=== PATIENT | female | born 1970 | race Caucasian/White ===

== ENCOUNTER 2020-11-28 12:28 | Emergency (ER) | payer BC, MEDICAID, SELFPAY ==
[~2020-11-28] VITALS: Ht 160 cm; Wt 65.8 kg
[2020-11-28 12:50] VITALS: BP 145/86
--- NOTE | 2020-11-28 12:53 | NUR ---
PT LEFT IN COVID TENT FOR MSE.
--- NOTE | 2020-11-28 15:19 | NUR ---
C/O COUGH, SOB, HEADACHE, CHILLS X 20 DAYS. TESTED POSITIVE FOR COVID 2 AYS AGO HX DENIES
--- NOTE | 2020-11-28 15:20 | NUR ---
Patient discharged with v/s stable. Written and verbal after care instructions given and explained. Patient alert, oriented and verbalized understanding of instructions. Ambulatory with steady gait. All questions addressed prior to discharge. ID band removed. Patient advised to follow up with PMD. Rx of AZITHROMYCIN, NAPROSYN, GUAIATUSSIN given. Patient educated on indication of medication including possible reaction and side effects. Opportunity to ask questions provided and answered.
[2020-11-28 15:21] VITALS: BP 145/86
== END 2020-11-28 15:20 | disposition home or self-care (01) ==
LOC: MED 12:28
DX: U07.1 COVID-19 (principal); J12.89 Other viral pneumonia
CPT/HCPCS: 71045; 99283

== ENCOUNTER 2020-12-02 10:40 | Emergency (ER) | payer MEDICAID ==
[~2020-12-02] VITALS: Ht 162.6 cm; Wt 63.5 kg
[2020-12-02 10:49] VITALS: BP 149/95
--- NOTE | 2020-12-02 11:00 | NUR ---
PATIENT SEEN AND EVALUATED BY ERMD IN TENT
[2020-12-02 11:33] VITALS: BP 149/95
--- NOTE | 2020-12-02 11:33 | NUR ---
Patient discharged with v/s stable. Written and verbal after care instructions given and explained. Patient verbalized understanding. Ambulatory with steady gait. All questions addressed prior to discharge. Advised to follow up with PMD.
== END 2020-12-02 11:33 | disposition home or self-care (01) ==
LOC: MED 10:40
DX: U07.1 COVID-19 (principal); R05 Cough
CPT/HCPCS: 99281

== ENCOUNTER 2022-09-29 05:46 | Emergency (ER) | payer MEDICAID ==
[~2022-09-29] VITALS: Ht 162.6 cm; Wt 73.9 kg
[2022-09-29 05:53] VITALS: BP 146/83
--- NOTE | 2022-09-29 06:06 | NUR ---
PT TAKEN TO BED 2
[2022-09-29 06:10] VITALS: BP 146/83
[2022-09-29] MEDS ORDERED: NACL 0.9% 1,000 ML IV ONE (06:30)
--- NOTE | 2022-09-29 07:15 | NUR ---
52/F WALKED IN C/O HEADACHE AND BACK PAIN ONSET 1 DAY. DENIES FALL OR TRAUMA. AFEBRILE. DENIES NVD. AAO4, AMBULATORY, DENIES DIZZINESS. VITALS STABLE PMHx: DENIES
[2022-09-29] MEDS ORDERED: KETOROLAC 30 MG/ML VIAL IVP ONE (07:40)
--- NOTE | 2022-09-29 07:40 | NUR ---
PT AMBULATED TO RESTROOM
[2022-09-29] MEDS ORDERED: ACET-8386 PO (08:54)
[2022-09-29] MEDS ORDERED: IBUP-2213 PO (08:54)
--- NOTE | 2022-09-29 09:10 | NUR ---
Patient discharged with v/s stable. Written and verbal after care instructions given and explained. Patient alert, oriented and verbalized understanding of instructions. Ambulatory with steady gait. All questions addressed prior to discharge. ID band removed. Patient advised to follow up with PMD. Patient educated on indication of medication including possible reaction and side effects. Opportunity to ask questions provided and answered.
--- NOTE | 2022-09-30 09:45 | NUR ---
LATE ENTRY- IV NS DISCONTINUED AT 0910.
== END 2022-09-29 09:10 | disposition home or self-care (01) ==
LOC: MED 05:46
DX: M54.50 Low back pain, unspecified (principal); R07.89 Other chest pain; R51.9 Headache, unspecified
CPT/HCPCS: 81002; 96361; 96374; 99283; J1885

== ENCOUNTER 2023-03-02 10:48 | Emergency (ER) | payer SELFPAY ==
[~2023-03-02] VITALS: Ht 154.9 cm; Wt 84.8 kg
[~2023-03-02 10:48] MED LIST: ACET-8905 PO; IBUP-2213 PO
[2023-03-02 10:50] VITALS: BP 135/106
--- NOTE | 2023-03-02 11:00 | NUR ---
TO ER BED 3
--- NOTE | 2023-03-02 11:06 | NUR ---
received in bed 3 for high blood pressure. no home meds. right foot pain. no fall or trauma. denies chest pain, dizziness,n,v, ringing in ears, sob. aaox4. resp even and nonlabored. bp slight elevated 166/87. ambulatory
[2023-03-02] MEDS ORDERED: ACETAMINOPHEN 325 MG TAB PO ONE (11:30)
--- NOTE | 2023-03-02 11:39 | NUR ---
xray done. medicated as ordered
[2023-03-02 12:11] VITALS: BP 150/76
--- NOTE | 2023-03-02 12:12 | NUR ---
Patient discharged with v/s stable. Written and verbal after care instructions given and explained. Patient verbalized understanding. Ambulatory with steady gait. All questions addressed prior to discharge. Advised to follow up with PMD. Addendum: 03/02/23 at 1213 by [email or web address] majano [id number]
== END 2023-03-02 12:11 | disposition home or self-care (01) ==
LOC: MED 10:48
DX: M76.891 Other specified enthesopathies of right lower limb, excluding foot (principal); I10 Essential (primary) hypertension; Z79.899 Other long term (current) drug therapy
CPT/HCPCS: 73630; 99283; Q0092

== ENCOUNTER 2023-11-28 07:02 | Emergency (ER) | payer OTHER ==
[~2023-11-28] VITALS: Ht 154.9 cm; Wt 81.6 kg
[2023-11-28 07:13] VITALS: BP 106/56; PULSE 92; RESP 18; TEMP 98; O2SAT 97
[2023-11-28] MEDS ORDERED: ALUMINUM HYD/MAG/SIMETHICONE 30 ML UDC PO ONE (07:25)
[2023-11-28] MEDS ORDERED: ONDANSETRON 4 MG ODT PO ONE (07:25)
[2023-11-28] MEDS ORDERED: FAMOTIDINE 20 MG TAB PO ONE (07:25)
[2023-11-28 07:42] LABS: EOSINOPHILS % (AUTO) 0.1 % (0.0-4.0); HEMATOCRIT 41.5 % (36-48); HEMOGLOBIN 14.5 g/dL (12.0-16.0); LYMPHOCYTES # (AUTO) 0.5 K/uL (2.5-16.5); LYMPHOCYTES % (AUTO) 5.2 % (20.5-51.1); MEAN CORPUSCULAR HEMOGLOBIN 30 pg (27-31); MEAN CORPUSCULAR HGB CONC 35 g/dL (33-37); MEAN CORPUSCULAR VOLUME 85.5 fL (80-94); MONOCYTES # (AUTO) 0.8 K/uL (0.8-1.0); MONOCYTES % (AUTO) 7.9 % (1.7-9.3); NEUTROPHILS # (AUTO) 8.6 K/uL (1.8-7.7); NEUTROPHILS % (AUTO) 86.8 % (42.2-75.2); PLATELET COUNT (AUTO) 263 K/uL (140-450); RED BLOOD CELL COUNT(AUTO) 4.85 MIL/uL (4.20-5.40); RED CELL DISTRIBUTION WIDTH 12.7 % (11.6-13.7); WHITE BLOOD COUNT (AUTO) 9.9 K/uL (4.8-10.8)
[2023-11-28 07:47] LABS: BILIRUBIN,URINE 1+ (NEGATIVE); BLOOD, URINE NEGATIVE (NEGATIVE); COLOR,URINE YELLOW (YELLOW); LEUKOCYTE ESTERASE ,URINE NEGATIVE (NEGATIVE); NITRITE, URINE POSITIVE (NEGATIVE); PH,URINE 5.5 (5.0-9.0); PROTEIN,URINE 2+ (NEGATIVE); UGLUCOSE TRACE (NEGATIVE)
[2023-11-28 07:50] VITALS: O2SAT 97
[2023-11-28 07:52] LABS: APPEARANCE,URINE HAZY (CLEAR)
[2023-11-28 08:10] LABS: BACTERIA,URINE 1+ /HPF (None Seen); RBC,URINE 0-5 /HPF (0-5); WBC,URINE 0-5 /HPF (0-5)
[2023-11-28 08:11] LABS: ALANINE AMINOTRANSFERASE 93 U/L (12-78); ALBUMIN 3.6 g/dL (3.4-5.0); ALKALINE PHOSPHATASE 112 U/L (50-136); ANION GAP 15.3 (8-16); ASPARTATE AMINOTRANSFERASE 51 U/L (15-37); BILIRUBIN,DIRECT 0.3 mg/dL (0.0-0.3); CALCIUM 8.2 mg/dL (8.5-10.1); CARBON DIOXIDE 24.4 mmol/L (21-32); CREATININE 0.8 mg/dL (0.6-1.3); POTASSIUM 3.7 mmol/L (3.5-5.1); TOTAL BILIRUBIN 1.2 mg/dL (0.0-1.0)
[2023-11-28 08:14] LABS: ICTOTEST NEGATIVE (NEGATIVE)
[2023-11-28] MEDS ORDERED: FAMO10TA41 PO (08:53)
[2023-11-28] MEDS ORDERED: CEPH-588 PO (08:53)
[2023-11-28] MEDS ORDERED: ONDA-188 SL (08:53)
== END 2023-11-28 09:00 | disposition home or self-care (01) ==
LOC: MED 07:02
DX: R10.13 Epigastric pain (principal); R11.2 Nausea with vomiting, unspecified; R19.7 Diarrhea, unspecified; I10 Essential (primary) hypertension; Z79.899 Other long term (current) drug therapy; Z79.2 Long term (current) use of antibiotics; Z79.1 Long term (current) use of non-steroidal anti-inflammatories (NSAID)
CPT/HCPCS: 36415; 74176; 80048; 80076; 81001; 84484; 85025; 93005; 99284; Q0162

== ENCOUNTER 2024-01-08 21:58 | Emergency (ER) | payer OTHER ==
[~2024-01-08] VITALS: Ht 154.9 cm; Wt 86.2 kg
[~2024-01-08 21:58] MED LIST changes: +CEPH-588 PO; +FAMO10TA41 PO; +ONDA-188 SL
[2024-01-08 22:05] VITALS: BP 158/83; PULSE 69; RESP 18; TEMP 97.9; O2SAT 97
[2024-01-08 23:25] LABS: BASOPHILS % (AUTO) 0.3 % (0.0-2.0); EOSINOPHILS # (AUTO) 0.2 K/uL (0-0.4); EOSINOPHILS % (AUTO) 2.1 % (0.0-4.0); HEMATOCRIT 39.1 % (36-48); HEMOGLOBIN 13.4 g/dL (12.0-16.0); LYMPHOCYTES # (AUTO) 2.9 K/uL (2.5-16.5); LYMPHOCYTES % (AUTO) 35.7 % (20.5-51.1); MEAN CORPUSCULAR HEMOGLOBIN 30 pg (27-31); MEAN CORPUSCULAR HGB CONC 34 g/dL (33-37); MEAN CORPUSCULAR VOLUME 86.1 fL (80-94); MONOCYTES # (AUTO) 0.7 K/uL (0.8-1.0); MONOCYTES % (AUTO) 8.7 % (1.7-9.3); NEUTROPHILS # (AUTO) 4.3 K/uL (1.8-7.7); NEUTROPHILS % (AUTO) 53.2 % (42.2-75.2); PLATELET COUNT (AUTO) 252 K/uL (140-450); RED BLOOD CELL COUNT(AUTO) 4.54 MIL/uL (4.20-5.40)
[2024-01-08 23:28] LABS: APPEARANCE,URINE CLEAR (CLEAR); BILIRUBIN,URINE NEGATIVE (NEGATIVE); BLOOD, URINE TRACE-I (NEGATIVE); COLOR,URINE YELLOW (YELLOW); LEUKOCYTE ESTERASE ,URINE NEGATIVE (NEGATIVE); NITRITE, URINE NEGATIVE (NEGATIVE); PH,URINE 6.5 (5.0-9.0); PROTEIN,URINE TRACE (NEGATIVE); UGLUCOSE 3+ (NEGATIVE); UROBILINOGEN,URINE 0.2 EU/dL (0.2 - 1)
[2024-01-08 23:32] LABS: BACTERIA,URINE 10-30 (MOD) /HPF (None Seen); MUCUS,URINE 1+ /LPF (None Seen); SQUAMOUS EPITHELIAL CELL,UR 0-3 (FEW) /LPF (0-3 (FEW))
[2024-01-08 23:38] LABS: ANION GAP 10.9 (8-16); CALCIUM 8.7 mg/dL (8.5-10.1); CARBON DIOXIDE 27.7 mmol/L (21-32); CREATININE 0.7 mg/dL (0.6-1.3); POTASSIUM 3.6 mmol/L (3.5-5.1)
[2024-01-09] MEDS: NACL 0.9% 2,000 ML IV ONE (00:20)
[2024-01-09] MEDS ORDERED: cefTRIAXone 1,000 MG VIAL ONE (00:21)
[2024-01-09] MEDS ORDERED: CEPH-588 PO (02:04)
[2024-01-09] MEDS ORDERED: METF-346 PO (02:04)
[2024-01-09 02:35] VITALS: BP 158/83; PULSE 69; RESP 18; TEMP 97.9; O2SAT 97
== END 2024-01-09 02:35 | disposition home or self-care (01) ==
LOC: MED 21:58
DX: R73.9 Hyperglycemia, unspecified (principal); I10 Essential (primary) hypertension; N39.0 Urinary tract infection, site not specified; Z79.899 Other long term (current) drug therapy; Z79.2 Long term (current) use of antibiotics; Z79.1 Long term (current) use of non-steroidal anti-inflammatories (NSAID)
CPT/HCPCS: 36415; 80048; 81001; 81025; 85025; 87086; 96365; 99284; J0696; J7030